=== PATIENT | female | born 1965 | race Caucasian/White ===

== ENCOUNTER 2017-04-15 05:29 | Inpatient (IN) | payer MEDICAID ==
[~2017-04-15] VITALS: Ht 162.6 cm; Wt 75.0 kg
[2017-04-15] MEDS ORDERED: MAALOX/HYOSCYAMINE/LIDOCAINE 45 ML BOTTLE ONE (06:30)
[2017-04-15] MEDS ORDERED: MAALOX/HYOSCYAMINE/LIDOCAINE 45 ML BOTTLE PO ONE (06:30)
[2017-04-15 06:40] LABS: ASPARTATE AMINO TRANSFERASE 12 U/L (15-37); BLOOD UREA NITROGEN 21 mg/dL (7-18)
[2017-04-15 06:49] LABS: IS PT STATUS REG ER OR PRE ER? YES
[2017-04-15] MEDS ORDERED: SODIUM CHLORIDE FLUSH 10ML SYR IVF ONE (07:00)
[2017-04-15] MEDS ORDERED: FAMOTIDINE 20 MG/2 ML IVP ONE (07:00)
[2017-04-15] MEDS ORDERED: MORPHINE SULFATE 4 MG/ML, 1ML IVPush PRN (07:00)
[2017-04-15] MEDS ORDERED: ONDANSETRON 2MG/ML, 2ML IVPush ONE (07:00)
[2017-04-15] MEDS ORDERED: ONDANSETRON 2MG/ML, 2ML ONE (07:05)
[2017-04-15] MEDS ORDERED: FAMOTIDINE 20 MG/2 ML ONE (07:05)
[2017-04-15] MEDS ORDERED: MORPHINE SULFATE 4 MG/ML, 1ML ONE (07:05)
[2017-04-15] MEDS ORDERED: LORazepam 2 MG/ML, 1ML ONE (07:26)
[2017-04-15] MEDS ORDERED: LORazepam 2 MG/ML, 1ML IVPush ONE (07:30)
[2017-04-15] MEDS ORDERED: PROMETHAZINE 25 MG/ML, 1ML ONE (07:48)
[2017-04-15] MEDS ORDERED: PROMETHAZINE 25 MG/ML, 1ML IM ONE (08:00)
[2017-04-15] MEDS ORDERED: POTASSIUM CHLORIDE 20 MEQ in SODIUM CHLORIDE 0.9% 1,000 ML IV ONE (09:51)
[2017-04-15] MEDS ORDERED: SODIUM CHLORIDE FLUSH 10ML SYR IVF PRN (10:00)
[2017-04-15] MEDS ORDERED: SODIUM CHLORIDE 0.9% 1,000 ML IV SCH (12:09)
[2017-04-15] MEDS ORDERED: OXYcodone IR 5MG TABLET PO PRN (12:30)
[2017-04-15] MEDS ORDERED: TEMAZEPAM 15 MG CAPSULE PO PRN (12:30)
[2017-04-15] MEDS ORDERED: POLYETHYLENE GLYCOL 17 GM PACKET PO PRN (12:30)
[2017-04-15] MEDS ORDERED: LABETALOL 250 MG in DEXTROSE 5% 200 ML IV PRN (12:30)
[2017-04-15] MEDS ORDERED: ACETAMINOPHEN 325 MG TABLET PO PRN (12:30)
[2017-04-15] MEDS ORDERED: ONDANSETRON 2MG/ML, 2ML IVPush PRN (12:30)
[2017-04-15 13:03] LABS: IS PT STATUS REG ER OR PRE ER? NO
[2017-04-15] MEDS: POTASSIUM CHLORIDE 40 MEQ in SODIUM CHLORIDE 0.9% 1,000 ML IV SCH (13:49)
[2017-04-15] MEDS ORDERED: hydrALAzine 20 MG/ML, 1ML IV PRN (15:30)
[2017-04-15 16:51] LABS: DAU SCREEN DISCLAIMER
[2017-04-15 17:37] VITALS: BP 130/81
[2017-04-15] MEDS: CARVEDILOL 3.125 MG TABLET PO SCH (18:04)
[2017-04-15 18:36] LABS: IS PT STATUS REG ER OR PRE ER? NO
[2017-04-15 19:06] VITALS: BP 121/82
[2017-04-15] MEDS: LISINOPRIL 10 MG TABLET PO SCH ×2 (21:00→21:05)
[2017-04-15] MEDS: SODIUM CHLORIDE FLUSH 3ML SYRINGE IVF SCH (21:00)
[2017-04-15] MEDS: morphine SULFATE 10 MG/ML, 1ML IVPush PRN ×2 (21:05→21:34)
[2017-04-16] MEDS: POTASSIUM CHLORIDE 40 MEQ in SODIUM CHLORIDE 0.9% 1,000 ML IV SCH (00:09)
[2017-04-16] MEDS: morphine SULFATE 10 MG/ML, 1ML IVPush PRN (00:49)
[2017-04-16 01:37] VITALS: BP 116/78
[2017-04-16 05:16] LABS: ASPARTATE AMINO TRANSFERASE 14 U/L (15-37); BLOOD UREA NITROGEN 16 mg/dL (7-18)
[2017-04-16] MEDS: CARVEDILOL 3.125 MG TABLET PO SCH ×2 (06:26→18:26)
[2017-04-16] MEDS: SENNA/DOCUSATE TABLET PO SCH (07:20)
[2017-04-16] MEDS: LISINOPRIL 10 MG TABLET PO SCH ×2 (07:20→19:58)
[2017-04-16] MEDS ORDERED: PANTOPROZOLE 40MG TABLET PO SCH (07:30)
[2017-04-16 08:52] VITALS: BP 132/77
[2017-04-16] MEDS: SODIUM CHLORIDE FLUSH 3ML SYRINGE IVF SCH ×2 (09:00→19:58)
[2017-04-16] MEDS ORDERED: FENTANYL PF 100 MCG/2ML ONE (14:01)
[2017-04-16] MEDS ORDERED: MIDAZOLAM 1 MG/ML, 5ML ONE (14:01)
[2017-04-16 15:32] VITALS: BP 130/82
[2017-04-16 19:06] VITALS: BP 157/94
[2017-04-17 01:08] VITALS: BP 119/71
[2017-04-17] MEDS: CARVEDILOL 3.125 MG TABLET PO SCH (05:57)
[2017-04-17 06:57] VITALS: BP 99/71
[2017-04-17] MEDS: SODIUM CHLORIDE FLUSH 3ML SYRINGE IVF SCH (09:00)
[2017-04-17] MEDS: SENNA/DOCUSATE TABLET PO SCH (09:00)
[2017-04-17] MEDS: LISINOPRIL 10 MG TABLET PO SCH (09:32)
[2017-04-17 09:35] VITALS: BP 126/84
[2017-04-17] MEDS: POTASSIUM CHLORIDE 40 MEQ in SODIUM CHLORIDE 0.9% 1,000 ML IV SCH (09:56)
[2017-04-17] MEDS ORDERED: CARV3.1212 PO (13:49)
[2017-04-17] MEDS ORDERED: LISI-167 PO (13:49)
[2017-04-17] MEDS ORDERED: SUCR1TAB26 PO (13:51)
[2017-04-17] MEDS ORDERED: OMEP-110 PO (13:51)
[2017-04-17 15:24] VITALS: BP 118/63
[2017-04-18] MEDS ORDERED: SENNA/DOCUSATE TABLET PO SCH (09:00)
== END 2017-04-17 16:00 | disposition home or self-care (01) | DRG 380 ==
LOC: ED 08:53 → EDIP 09:51 → CCU 10:44 → 3NE 17:31 → DCLOUNGE 04-17 15:40
PROVIDERS: ADMIT Internal Medicine; ATTEND Family Medicine
PROC: 0DB78ZX Excision of Stomach, Pylorus, Via Natural or Artificial Opening Endoscopic, Diagnostic (ICD-10-PCS; principal; 2017-04-16 16:00)
DX: K22.10 Ulcer of esophagus without bleeding (principal); I71.03 Dissection of thoracoabdominal aorta; E03.9 Hypothyroidism, unspecified; I10 Essential (primary) hypertension; E87.6 Hypokalemia; D72.829 Elevated white blood cell count, unspecified; F17.210 Nicotine dependence, cigarettes, uncomplicated; I25.10 Atherosclerotic heart disease of native coronary artery without angina pectoris; K44.9 Diaphragmatic hernia without obstruction or gangrene; K25.9 Gastric ulcer, unspecified as acute or chronic, without hemorrhage or perforation; Z90.49 Acquired absence of other specified parts of digestive tract; Z88.0 Allergy status to penicillin; Z86.73 Personal history of transient ischemic attack (TIA), and cerebral infarction without residual deficits
CPT/HCPCS: 36415; 71010; 71275; 80053; 80061; 80307; 83690; 83735; 84443; 84484; 85025; 85610; 85730; 86850; 86900; 86923; 87081; 88305; 93005; 93306; 96372; 96374; 96375; 99152; J2250; J2405; J2550; J3010; J3480; J2060; J2270; J7030; S0028